=== PATIENT | female | born 1995 | race Caucasian/White ===

== ENCOUNTER → 2017-10-19 12:24 | Outpatient (CLI) | payer SELFPAY | PROVIDERS: Family Provider Family Medicine; PCP Family Medicine; Visit Provider Orthopaedic Surgery | DX: M70.61 Trochanteric bursitis, right hip (principal); Y93.9 Activity, unspecified | CPT/HCPCS: 27093; 73722; 77002; A9577; Q9967 ==

== ENCOUNTER 2018-07-13 13:57 | Emergency (ER) | payer SELFPAY ==
[2018-07-13 13:58] VITALS: BP 146/89; PULSE 108; RESP 20; TEMP 36.5; O2SAT 100; BMI 26.7
[2018-07-13 14:12] VITALS: BP 138/83; PULSE 93
--- NOTE | 2018-07-13 14:12 | CT_ITS ---
STUDY: CT BRAIN WITHOUT CONTRAST REASON FOR EXAM: Female, 22 years old. Weakness. Tachycardia. RADIATION DOSAGE (If Supplied By Facility): CTDIvol = ( 44.99 ) mGy, DLP = ( 745.49 ) mGycm TECHNIQUE: Transaxial CT imaging of the brain was performed without administration of intravenous contrast material. Individualized dose optimization techniques were used for this CT. COMPARISON: No relevant priors. FINDINGS: Normal soft tissue structures. Normal calvarium. Normal size ventricles and extra-axial spaces for the patient's age. Normal white matter tracts of the cerebral hemispheres. Normal basal ganglia and thalami. Normal brainstem. Normal cerebellum. There is no intracranial hemorrhage. There are no findings of an acute ischemic infarction. Normal visualized paranasal sinuses. CT/Brain/Head without Contrast IMPRESSION: Normal unenhanced CT scan of the brain. Electronically Signed: Hilario Jones, at 15:58 EDT , Service support ,
--- NOTE | 2018-07-13 14:13 | RAD_ITS ---
STUDY: X-RAY CHEST REASON FOR EXAM: Female, 22 years old. Tachycardia. TECHNIQUE: AP and lateral views of the chest. COMPARISON: None. FINDINGS: EKG electrodes are seen. The lungs are clear and expanded. There is no demonstrated pleural abnormality. Normal size heart. Normal mediastinum and niurka. Normal visualized pulmonary arteries. Normal visualized aortic arch and descending thoracic aorta. Normal visualized thoracic spine. Normal visualized ribs, clavicles, and shoulders. There is no demonstrated abnormality of the visualized soft tissue structures of the upper abdomen. RAD/Chest PA and Lateral IMPRESSION: Normal x-ray examination of the chest. Electronically Signed: Hilario Jones, at 15:58 EDT , Service support ,
--- NOTE | 2018-07-13 14:16 | ED.VISSUMM ---
- ER Visit Summary Date of Service: 07/13/18 Chief Complaint: Syncope and possible seizure History of Present Illness: The patient is a 22 F who presents with a syncopal episode that occurred today while at work. Coworkers states that they were eating lunch when patient started having a choking episode. Coworkers state that patient was able to cough up her food. Patient states that after that she had a syncopal episode. They also noted that the patient had approximately 30 seconds of tonic-clonic activity followed by approximately 5 to 10 minutes of decreased level of consciousness. Patient states she feels weak and fatigued all over. Patient states that she felt her heart racing prior to the syncopal episode. Patient now complains of a headache. Coworkers also states that the patient's blood pressure was elevated in the 180s during the episode. Physical Examination: Vital signs are stable except for mild tachycardia of 108. Patient is afebrile. Patient is in no acute distress. Oral mucosa is pink and moist. Neck is supple. Trachea is midline. There is no JVD noted. Heart was regular rate and rhythm. Lungs are clear and equal bilateral. Abdomen is soft. Bowel sounds are normal. There is no tenderness. There is no guarding noted. Skin is warm dry. Cranial nerves II through XII are intact. There are no focal motor or sensory deficits noted. The remaining physical exam is within normal limits. Test Results: CBC, comprehensive metabolic profile, urinalysis, troponin, serum hCG, urine tox screen were obtained and were all essentially within normal limits. PA and lateral chest x-ray does not show any acute cardiopulmonary process. CT scan of the brain was obtained and was negative. Emergency Department Course and Treatment: Patient was given IV fluids. Patient felt better on reevaluation. Patient was advised of her test results. Patient was instructed to drink plenty of fluids. Patient was instructed to follow-up with her primary care physician in 5 to 7 days. Patient understood and was agreeable with the plan. All questions were answered. Disposition: Discharge home Impression: Syncope This note was generated with [employer] dictation software. It may contain incorrect words, spelling, and punctuation that were not noted in review of the chart prior to signing ED Disposition - Plan for ED Patient: Disposition: Home or Assisted Living Diagnosis: Syncope Instructions: ED Fainting Unkn Cause Referrals: Varun Swift DO [Primary Care Provider] - 5-7 Days
[2018-07-13 14:23] LABS: Absolute Lymphocyte Count 2.15 X10^3/ul (0.83-4.51); Absolute Neutrophil Count 1.9 X10^3/uL (2.0-7.7); Basophil# 0.02 X10^3/uL; Basophil% 0.5 % (0-1); Eosinophil# 0.05 X10^3/uL; Eosinophils% 1.1 % (0-5); Hemoglobin 13.2 g/dl (12.0-15.0); Lymphocyte # 2.15 X10^3/ul (4.0); Lymphocyte % 48.5 % (19-41); Mean Corpuscular Hgb 30.1 pg (27.0-32.0); Mean Corpuscular Volume 91.3 fL (81-99); Mean Platelet Vol. 11.5 fl (6.2-12.0); Monocyte# 0.28 X10^3/uL; Monocyte% 6.3 % (0-10); Neutrophil # 1.92 X10^3/uL (2.7-7.7); Neutrophil % 43.4 % (47-70); Platelet Count 218 K/mm3 (150-450); RBC Distribution Width CV 13.1 % (11.6-14.6); RBC Distribution Width SD 43.4 fl (35.1-43.9); Red Blood Count 4.38 M/mm3 (4.2-5.4); White Blood Count 4.4 K/mm3 (4.4-11.0)
[2018-07-13 14:24] LABS: POSITIVE COUNT NO; POSITIVE DIFFERENTIAL NO; POSITIVE MORPHOLOGY NO
[2018-07-13] MEDS: 0.9% Normal Saline 1,000 ML 1000 ML IV (14:24)
--- NOTE | 2018-07-13 14:30 | ED.RN ---
WHEN SITTING PT UP FOR ORTHOSTATICS, RN HAD TO KEEP FROM FALLING BACKWARDS IN BED. ONCE LYING AGAIN, STATES SHE FEELS VERY TIRED. 133/75, HR 100
[2018-07-13 14:36] LABS: Bedside Glucose 150 mg/dL (70-110)
[2018-07-13 14:37] LABS: ALB/GLOB Ratio 1.3 RATIO (0.9-2.4); AST(SGOT) 9 U/L (15-37); Alanine Aminotransfer ALT/SGPT 19 U/L (13-56); Albumin, Serum 4.3 g/dL (3.2-5.0); Alkaline Phosphatase 56 U/L (45-117); Anion Gap 8 (5-15); BUN 11 mg/dL (7-18); BUN/Creat Ratio 12.8 RATIO (10-20); Calcium,Total 8.5 mg/dL (8.5-10.1); Chloride 108 mmol/L (98-107); Creatinine, Serum 0.86 mg/dL (0.55-1.02); EST Glomerular Filtration Rate 89 mL/min (>60); Est Glom Filt Rate - Afr Amer 108 mL/min (>60); Estimated Creatinine Clearance 109.05 ml/min; Globulin 3.2 g/dL (2.2-4.2); Glucose 149 mg/dL (74-106); Potassium 3.3 mmol/L (3.5-5.1); Protein, Total 7.5 g/dL (6.4-8.2); Sodium Level 141 mmol/L (136-145)
[2018-07-13 14:48] LABS: Internal QC Validated? YES +Cl - CLEAR BKGD; Pregnancy, Serum, hCG Quali. NEGATIVE Negative
[2018-07-13 15:10] VITALS: BP 125/63; PULSE 101; RESP 18; O2SAT 100
[2018-07-13 15:19] LABS: Mucous, Urine 0 SEEN /hpf (<or=2+); Red Blood Cells-Urine 0 SEEN /hpf (0-5); White Blood Cells 0 SEEN /hpf (0-5)
[2018-07-13 15:21] LABS: Color, Urine Yellow (Yellow); Glucose, Dipstick Normal (Normal); Ketone-Dipstick Negative (Negative); Leukocyte Esterase-Dipstick Negative /ul (Negative); Nitrite-Dipstick Negative (Negative); Occult Blood-Urine Negative /ul (Negative); Protein-Dipstick Negative (Negative); Specific Gravity, Urine 1.005 (1.002-1.030); Urine Bilirubin Dipstick Negative (Negative); Urine Clarity Clear (Clear); Urine Urobilinogen Normal (Normal)
[2018-07-13 15:25] LABS: Bacteria RARE /hpf (None Seen); Squamous Epithelial Cells - UA 0-5 SEEN /hpf (5-10)
[2018-07-13 15:34] LABS: Amphetamine Urine VISTA NEGATIVE (<1000 ng/mL); Barbiturate Urine VISTA NEGATIVE (< 200 ng/mL); Benzodiazepine Urine VISTA NEGATIVE (< 200 ng/mL); Cocaine Urine VISTA NEGATIVE (< 300 ng/mL); Ecstacy Urine VISTA NEGATIVE (< 500 ng/mL); Methadone Urine VISTA NEGATIVE (< 300 ng/mL); PCP Urine VISTA NEGATIVE (< 25 ng/mL); THC Urine VISTA NEGATIVE (< 50 ng/mL); Vista UDS pH Range 7
[2018-07-13 16:27] VITALS: BP 113/75; PULSE 62; RESP 15; O2SAT 100
== END 2018-07-13 16:28 | disposition home or self-care (01) ==
PROVIDERS: Emergency Provider Emergency Medicine; Family Provider Family Medicine; PCP Family Medicine
DX: R55 Syncope and collapse (principal); R00.2 Palpitations; R51 Headache
CPT/HCPCS: 70450; 71046; 80053; 80307; 81001; 82962; 84484; 84703; 85025; 96360; 99285; J7030; A4216

== ENCOUNTER → 2022-10-27 | Outpatient (CLI) | payer SELFPAY ==
[2022-10-12 15:57] LABS: Absolute Lymphocyte Count 2.03 X10^3/uL (0.83-4.51); Absolute Neutrophil Count 2.2 X10^3/uL (2.0-7.7); Basophil# 0.02 X10^3/uL; Basophil% 0.4 % (0-1); Eosinophil# 0.04 X10^3/uL; Eosinophils% 0.9 % (0-5); Hematocrit 42.3 % (37-47); Hemoglobin 13.5 g/dL (12.0-15.0); Lymphocyte # 2.03 X10^3/ul (0.83-4.51); Lymphocyte % 43.7 % (19-41); Mean Corp Hgb Conc 31.9 g/dL (32-36); Mean Platelet Vol. 12.3 fl (6.2-12.0); Monocyte# 0.36 X10^3/uL; Monocyte% 7.7 % (0-10); NRBC Flagged by Analyzer 0 % (0-5); Neutrophil # 2.19 X10^3/uL (2.7-7.7); Neutrophil % 47.1 % (47-70); Platelet Count 208 K/mm3 (150-450); RBC Distribution Width CV 13.2 % (11.6-14.6); RBC Distribution Width SD 45.8 fl (35.1-43.9); White Blood Count 4.7 K/mm3 (4.4-11.0)
[2022-10-12 16:09] LABS: International Normalized Ratio 1.2; Partial Thromboplast Time 27.6 Seconds (24.1-36.2); Prothrombin Time (Protime)PT. 14.7 SECONDS (11.7-14.9)
[2022-10-12 16:12] LABS: Vitamin B12 264 pg/mL (211-911); Vitamin D,25 Hydroxy 60.3 ng/mL
[2022-10-12 16:30] LABS: ALB/GLOB Ratio 0.9 RATIO (0.9-2.4); AST(SGOT) 15 U/L (15-37); Alanine Aminotransfer ALT/SGPT 25 U/L (13-56); Albumin, Serum 3.5 g/dL (3.2-5.0); Alkaline Phosphatase 36 U/L (45-117); Anion Gap 6 (5-15); BUN 6 mg/dL (7-18); BUN/Creat Ratio 7.8 RATIO (10-20); Calcium,Total 8.7 mg/dL (8.5-10.1); Chloride 107 mmol/L (98-107); Creatinine, Serum 0.77 mg/dL (0.55-1.02); EST Glomerular Filtration Rate 97 mL/min (>60); Est Glom Filt Rate - Afr Amer 117 mL/min (>60); Globulin 3.7 g/dL (2.2-4.2); Glucose 88 mg/dL (74-106); Potassium 3.5 mmol/L (3.5-5.1); Protein, Total 7.2 g/dL (6.4-8.2); Sodium Level 138 mmol/L (136-145); Thyroid Stim Hormone (TSH) 1.04 uIU/mL (0.358-3.74)
--- NOTE | 2022-10-27 10:08 | ECHOD_ITS ---
Reason For Study: Syncope and Collapse Procedure This was a 2D Doppler, Color Flow transthoracic echocardiogram. Exam performed in department. Left Ventricle Normal left ventricle. The left ventricular ejection fraction is 60 %. Normal diastology for age. Right Ventricle Normal right ventricle. Atria The left and right atria are normal. Mitral Valve Trivial mitral valve insufficiency. Tricuspid Valve Trivial tricuspid valve insufficiency. Normal pulmonary artery pressure. Aortic Valve Normal aortic valve. Pulmonic Valve Normal pulmonic valve. Trivial pulmonic valve insufficiency. Great Vessels Normal sized aortic root. Pericardium/Pleural No pericardial effusion. MMode/2D Measurements & Calculations LVIDd: 4.9 cm IVSd: 0.85 cm Ao root diam: 2.3 cm LVIDs: 3.6 cm LVPWd: 0.83 cm RVDd: 4.2 cm FS: 26.8 % LAV(MOD-bp): 42.4 ml LVAd ap4: 33.7 cm2 SV(MOD-sp4): 60.3 ml LAV(MOD-bp) Indexed: 22.6 ml/m2 LVLd ap4: 8.4 cm LAV(MOD-sp2): 47.4 ml EDV(MOD-sp4): 109.5 ml LAV(MOD-sp4): 36.3 ml EDV(sp4-el): 115.1 ml LVAs ap4: 20.2 cm2 LVLs ap4: 6.9 cm ESV(MOD-sp4): 49.2 ml ESV(sp4-el): 50.1 ml EF(MOD-sp4): 55.1 % EF(sp4-el): 56.5 % SV(sp4-el): 65.0 ml LA A4 area: 14.6 cm2 LA dimension(2D): 4.1 cm RA A4 area: 12.5 cm2 TAPSE: 2.4 cm Time Measurements MV dec time: 0.14 sec Doppler Measurements & Calculations MV E max jayy: 107.3 cm/sec Lat Peak E' Jayy: 14.8 cm/sec Med Peak E' Jayy: 10.7 cm/sec MV A max jayy: 62.5 cm/sec E/E' lat: 7.3 E/E' med: 10.0 MV E/A: 1.7 Ao V2 max: 129.3 cm/sec LV V1 max: 99.8 cm/sec MV dec slope: 769.5 cm/sec2 Ao max P.7 mmHg LV V1 max P.0 mmHg Ao V2 mean: 95.4 cm/sec Ao mean P.0 mmHg Ao V2 VTI: 28.8 cm PA V2 max: 110.1 cm/sec PI end-d jayy: 117.4 cm/sec TR max jayy: 234.3 cm/sec TR max P.0 mmHg ECHO/Echo Complete Interpretation Summary The left ventricular ejection fraction is 60 %. Ordering Physician: Arely Tyler Referring Physician: Arely Tyler Performed By: Jo Levin, JOSEPHINE, RVT
== END | disposition home or self-care (01) ==
PROVIDERS: PCP Internal Medicine; Referring Provider Internal Medicine; Visit Provider Internal Medicine
DX: R55 Syncope and collapse (principal)
CPT/HCPCS: 36415; 80053; 82306; 82607; 84443; 85025; 85610; 85730; 93306

== ENCOUNTER 2023-08-12 19:47 | Outpatient (RCR) | payer SELFPAY | END 2023-09-04 23:59 | LOC: EMPH 19:47 | PROVIDERS: PCP Internal Medicine; Referring Provider Family Medicine Geriatric Medicine; Visit Provider Family Medicine Geriatric Medicine | DX: Z03.818 Encounter for observation for suspected exposure to other biological agents ruled out (principal) | CPT/HCPCS: 87811 ==